=== PATIENT | female | born 1950 | race Caucasian/White ===

== ENCOUNTER 2025-02-19 19:37 | Day surgery (SDC) | payer BC, MEDICARE, SELFPAY ==
[2025-02-19] VITALS (12 sets, daily range): BP systolic 95–166; BP diastolic 50–100; BMI 30.1; BMI 27.8
[2025-02-19 10:28] LABS: Hematocrit 38.2 % (37.0-47.0); Hemoglobin 13.7 g/dL (12.0-16.0); Mean Corp Hgb Conc. 35.9 g/dL (33.0-37.0); Mean Corpuscular Volume 87.0 fL (81.0-99.0); Nucleated Red Blood Cells % 0 %; Platelet Count 295 10^3/uL (130-400); Red Cell Dist. Width 12.9 % (11.5-14.5)
[2025-02-19 11:00] LABS: ALT (SGPT) 24 U/L (0-35); AST (SGOT) 29 U/L (14-36); Albumin 4.6 g/dl (3.5-5.0); Alkaline Phosphatase 66 U/L (38-126); Blood Urea Nitrogen 20 mg/dl (7-17); Calcium 10.1 mg/dl (8.4-10.2); Carbon Dioxide 26 mmol/L (22-30); Chloride 99 mmol/L (98-107); Glucose 125 mg/dl (70-99); Lipase 135 U/L (23-300); Potassium 4.3 mmol/L (3.5-5.1); Sodium 133 mmol/L (135-145); Total Protein 7.3 g/dl (6.3-8.2); eGFR > 60.00
--- NOTE | 2025-02-19 12:24 | ED.GENMED ---
History of Present Illness
General
Chief Complaint: Abdominal Pain
Source: patient
Exam Limitations: none
Time Seen by Provider: 02/19/25 12:00
History of Present Illness
History of Present Illness:
74yoF with history of hypertension, hyperlipidemia, and hypothyroidism presenting for evaluation of abdominal pain. Patient has been feeling unwell for about a week. She started to experience sharp gas pains in the periumbilical and RLQ regions
yesterday. She was moving her bowels all night. This morning, she noticed a hard lump in the RLQ and decided to come to the ED. She had two episodes of vomiting today. She denies any fevers or difficulty urinating. No previous abdominal
surgeries.
Phy Exam
Physical Exam
Physical Exam:
Appears uncomfortable, non-toxic
General Physical Exam
General Presentation: mild distress
General Skin: warm and dry
General Habitus: normal
General Mental: alert
ENT Exam
ENT Exam: normocephalic
Pulmonary Exam
Pulmonary Exam: no respiratory distress
Gastrointestinal Exam
Gastrointestinal Exam: normal bowel sounds, soft, non distended, tender and other (Palpable hernia in RLQ that is unable to be reduced. No skin changes. +Tenderness to RLQ.)
Neurological Exam
Neurological Exam: alert
Molly Coma Scale
Eye Opening: Spontaneous
Verbal Response: Oriented
Motor Response: Obeys Commands
GCS Total Score: 15
Skin Exam
Skin Exam: normal color and warm/dry
Psychiatric Exam
Psychiatric Exam: normal mood/affect
Course
Orders/Labs/Results
Orders:
Orders
02/19/25 10:16
IV Insert/Care/Rem.- Treatment PRN
02/19/25 10:20
Complete Blood Count/With Diff Urgent
Comprehensive Metabolic Panel Urgent
Lipase Urgent
02/19/25 12:24
0.9% Sodium Chloride 1000 ml [Nss] 1,000 ml IV BOLUS
02/19/25 12:25
CT Abd/pelvis W Iv Cont Urgent
Comment:
Reason For Exam: RLQ pain, possible hernia, vomiting
02/19/25 14:50
HYDROmorphone [Dilaudid] 0.5 mg IV NOW STA
Ondansetron Injectable [Zofran] 4 mg IV NOW STA
Abnormal Lab Results
02/19/25
10:20
MCH 31.2 H pg
(27.0-31.0)
Absolute Monos (auto) 0.7 H 10^3/uL
(0.1-0.6)
Lymphocytes % 17.3 L %
(20.5-51.1)
Sodium 133 L mmol/L
(135-145)
BUN 20 H mg/dl
(7-17)
Glucose 125 H mg/dl
(70-99)
02/19/25 10:20
02/19/25 10:20
Vital Signs
Initial and Last Documented VS:
Initial Vital Signs
Temp Pulse Resp BP Pulse Ox
98.7 F 95 18 166/100 99
02/19/25 10:12 02/19/25 10:12 02/19/25 10:12 02/19/25 10:12 02/19/25 10:12
Last Documented Vital Signs
Temp Pulse Resp BP Pulse Ox
98.7 F 70 16 104/62 99
02/19/25 10:12 02/19/25 12:39 02/19/25 12:39 02/19/25 15:00 02/19/25 15:15
MDM/Problems Addressed
Differential Diagnosis Includes:
74yoF here with abd pain and vomiting. Noticed a hard lump in the RLQ this morning. She is hypertensive with otherwise normal vitals. She appears uncomfortable but is non-toxic. There is a palpable firm mass noted on exam that is unable to be
reduced. Differential diagnosis includes: hernia, bowel obstruction, constipation, malignancy
Initial ED plan: Labs obtained in triage which are overall unremarkable. Will proceed with CT abdomen. She declines analgesics.
*Pulse Oximetry
SaO2: 99
Oxygen Mode of Delivery: Room air
Patient hypoxic: no (99%)
*Critical Care Note
Total Time (30-74mins, 75-104mins- exclusive of procedures): Not Applicable
Update Note
Update Note:
CT shows a right groin hernia containing an obstructed loop of small bowel. Ice applied and patient placed in Trendelenburg position. Patient evaluated by Dr. Lane. Hernia unable to be reduced. Plan for surgery this afternoon for hernia
repair.
ED Attending Note
-
Portions of this chart may have been created with voice recognition software.� Occasional wrong word or��sound alike� substitutions may have occurred due to the inherent limitations of voice recognition software.
Discharge Plan
Departure
Patient Disposition: Admit
Date of Disposition: 02/19/25
Time of Disposition: 15:40
Presentation/result/management discussed w/ accepting MD/DO: Dr. Lane
Discharge Problem:
Inguinal hernia of right side with obstruction
Prescriptions:
No Action
lisinopril 20 mg tablet
20 mg PO DAILY
aspirin 81 mg Tablet,Delayed Release (Dr/Ec)
81 mg PO DAILY
simvastatin [Zocor] 40 mg Tablet
40 mg PO QPM
levothyroxine [Synthroid] 75 mcg Tablet
75 mcg PO DAILY
hydrochlorothiazide 25 mg Tablet
25 mg PO DAILY
Referrals:
Michael Gerard IV, MD [Family Provider, Family Practice]
Interventions
Interventions:
*Risk Screen - Suicide Last Done: 02/19/25 10:12
*General Assessment Last Done: 02/19/25 11:13
*Neglect/Abuse Screening Last Done: 02/19/25 10:12
*ED- Fall Risk Assessment Last Done: 02/19/25 11:13
*ED COVID-19 Vaccine History Last Done: 02/19/25 11:13
GA-Cajwme-Fwntcenepm Assessment Last Done: 02/19/25 11:17
Discharge Date and Time
Print Language: KISWAHILI
[2025-02-19] MEDS: NSS 1000 IV (12:32)
[2025-02-19] MEDS: DILAUDID 0.5 MG IV (14:54)
[2025-02-19] MEDS: ZOFRAN 4 MG IV ×2 (14:54→20:55)
--- NOTE | 2025-02-19 15:20 | HPS.HSE ---
Family Physician
-
Family Physician: Michael Gerard IV, MD
Chief Complaint
-
RIGHT groin pain
History of Present Illness
Patient is a 74 yo F with a PMH of HTN, HLD, and hypothyroidism who presents to the ED approximately 12 hours of RIGHT groin discomfort. Mr. Bunn states that she developed mild to moderate RIGHT groin discomfort yesterday after grocery shopping.
Her symptoms persisted throughout the day, however, she was able to pass flatus and stools up until yesterday evening. This Am her pain worsened and she developed nausea and vomiting prompting presentation to the ER. No fevers or chills. Current
nausea, but no vomiting. No recent flatus or bowel movement since yesterday. She denies any prior symptoms of RIGHT groin discomfort. She has been performing some heavy lifting carrying bags of mulch and doing yard work.
Medical History
Past Medical History
Past Medical History: Reports HTN, Hypercholesterolemia and Hypothyroidism
Past Surgical History: Reports Other (Cataract)
Social History
Tobacco: Non-smoker
Alcohol: Occasional
Drug: None
Personal:
Living: With Family
Family History
Family History: Not pertinent
Allergies / Home Medications
Allergies reflects when Allergies were last updated in [facility].
Home Medications with original date entered in [facility]
Allergy/Medication List:
Lidocaine
Review of Systems
-
A 12 point ROS was completed and negative except as noted: Yes
Physical Exam
Vital Signs
Vital Signs
Temp Pulse Resp BP Pulse Ox
98.7 F 70 16 126/72 100
02/19/25 10:12 02/19/25 12:39 02/19/25 12:39 02/19/25 14:46 02/19/25 14:47
Physical Exam
General: Well Developed, Well Nourished, No Apparent Distress and Pain
HEENT: NormoCephalic and Anicteric
Respiratory: Non Labored Respirations
Cardiac: Regular Rhythm
GI: Soft, Non Tender, Non Distended and Other (RIGHT groin bulge/hernia, non-reducible, firm, tender, no skin changes, no palpable LEFT inguinal hernia)
Musculoskeletal: No Edema
Neuro: Nonfocal/grossly intact
Laboratory Results
-
02/19/25 10:20
02/19/25 10:20
Laboratory Results
Total Bilirubin 1.0 mg/dl (0.2-1.3) 02/19/25 10:20
AST 29 U/L (14-36) 02/19/25 10:20
ALT 24 U/L (0-35) 02/19/25 10:20
Alkaline Phosphatase 66 U/L (38-126) 02/19/25 10:20
Lipase 135 U/L (23-300) 02/19/25 10:20
Data Reviewed
-
CT Scan: Image Personally Visualized and interpreted and Report Reviewed by me
Lab Data: Labs Reviewed by me
Impression/Plan
-
IMPRESSION:
Patient is a 74 yo F p/w incarcerated RIGHT inguinal/femoral hernia containing bowel with associated obstruction
The natural history and pathophysiology of groin hernias was discussed. Anatomy was reviewed. CT scan imaging was reviewed. Options for management were briefly reviewed. Given the incarcerated nature of her hernia with associated bowel recommend
operative intervention on a more emergent basis.
Plan for a laparoscopic possible open RIGHT inguinal/femoral hernia repair with possible mesh possible bowel resection. The procedure itself, as well as the risks, benefits, and alternatives was discussed. Specifically, we discussed the risks of
bleeding, infection, injury to surrounding structures (bowel, nerves), wound complications, and recurrence. Typical postprocedural recovery was discussed. Specifically, we discussed no heavy lifting or strenuous activities for 4 weeks
postoperatively. Postoperative hospitalization and recovery also to be determined based on need for bowel resection. All questions answered. Consent signed.
PLAN:
-- Laparoscopic possible open RIGHT inguinal/femoral hernia repair with possible mesh possible bowel resection
-- NPO, IVF
-- Abx: Zosyn
-- Admit post-op
--- NOTE | 2025-02-19 15:46 | W.SUR.PREOP ---
Pre-Operative Surgical Note
-
I have examined this patient prior to the performance of the scheduled procedure.
The patient's condition is unchanged from the time of the current History and
Physical and the patient is able to undergo the scheduled procedure.
[2025-02-19] MEDS: ZOSYN 50 IV (17:42)
[2025-02-19] MEDS: LR 1000 IV (17:43)
--- NOTE | 2025-02-19 20:28 | W.IMMPOSTOP ---
Surgical Immed Post Op Note
-
Primary Surgeon: Ariana
Assisting Surgeon: None
Pre-op Diagnosis: Incarcerated femoral hernia
Post-op Diagnosis: Incarcerated femoral hernia
Procedure Performed: Laparoscopic femoral hernia repair with mesh, diagnostic laparoscopy and reduction of femoral hernia
Anesthesia Type: General
Specimen / Cultures: None
Estimated Blood Loss: 3 cc
Complications: None
Operative Findings:
1. Femoral hernia containing knuckle of small bowel, reduced, viable, serous reactive fluid
2. Laparoscopic TEPP femoral hernia repair with Bard 3D Max large mid weight (no direct or indirect)
[2025-02-20] VITALS: BP 107/60
[2025-02-20 01:00] VITALS: BP 99/55
[2025-02-20] MEDS: TYLENOL PO (01:10)
[2025-02-20] MEDS: TYLENOL 650 MG PO ×4 (04:56→16:22)
[2025-02-20 06:24] LABS: Hematocrit 32.6 % (37.0-47.0); Hemoglobin 11.3 g/dL (12.0-16.0); Mean Corp Hgb Conc. 34.7 g/dL (33.0-37.0); Mean Corpuscular Volume 88.6 fL (81.0-99.0); Platelet Count 228 10^3/uL (130-400); Red Cell Dist. Width 12.9 % (11.5-14.5)
--- NOTE | 2025-02-20 06:43 | PTCARENOTE ---
Received pt from PACU around 2129, pt s/p hernia mesh repair. bedside as well. Patient oriented to room. see flowsheets for vital signs and assessment. Call roth within reach.
[2025-02-20 06:50] LABS: Blood Urea Nitrogen 12 mg/dl (7-17); Calcium 9.0 mg/dl (8.4-10.2); Carbon Dioxide 26 mmol/L (22-30); Chloride 100 mmol/L (98-107); Estimated Creatinine Clearance 66 ml/min; Glucose 146 mg/dl (70-99); Potassium 4.5 mmol/L (3.5-5.1); Sodium 132 mmol/L (135-145); eGFR > 60.00
[2025-02-20 07:25] VITALS: BP 112/68
[2025-02-20] MEDS: LR IV (08:08)
[2025-02-20] MEDS: LR 1000 IV (08:19)
--- NOTE | 2025-02-20 10:07 | CM ---
Reviewed the chart notes and spoke with the patient at the bedside. Patient is s/p laparoscopic femoral hernia repair with mesh. Diet advanced to clear liquid. The patient resides with her spouse in a two story home with two steps to enter. The
patient reports no DME/VN/SNF in the past. The patient confirmed her pharmacy of choice is [facility]. CM continues to be available to patient/family and is monitoring medical plan for needs at discharge.
Plan: Discharge to home when medically stable. No anticipated needs identified at this time.
[2025-02-20 11:05] VITALS: BP 147/77
--- NOTE | 2025-02-20 12:40 | W.PN.GS2 ---
Today's Communication / Plan
-
-- Clears ADAT to LRD
-- HLIV
-- Pain control: Tylenol, Toraol, Tramadol
-- Home meds
-- Dispo pending dietary tolerance
Assessment / Plan
-
Patient is a 74 yo F p/w incarcerated RIGHT femoral hernia, POD#1 s/p laparoscopic RIGHT femoral hernia repair with mesh, and diagnostic laparoscopy with reduction of incarcerated bowel
AVSS
Labs notable for normal WBC, slight drift in Hb, hyponatremia, normal renal function
Clinically improved. No major postoperative concerns. No clinical signs of bleeding. Plan for dietary advancement throughout the day. Dispo pending dietary tolerance today versus tomorrow.
-- Clears ADAT to LRD
-- HLIV
-- Pain control: Tylenol, Toraol, Tramadol
-- Home meds
-- DVT: Lovenox
-- Dispo pending dietary tolerance
Subjective Data
-
Date of Service: February 20, 2025
Subjective. No major complaints. Pain well-controlled. Denies any nausea or vomiting. Reports passing flatus. No bowel movement. No fevers. Voiding.
Objective Data
-
Intake and Output
02/19/25 02/20/25 02/21/25
06:59 06:59 06:59
Intake Total 800 / 800
Output Total 50 / 50
Balance 750 / 750
Intake:
IV fluids (Total) 800 / 800
Output:
Urine, Suggs 50 / 50
Other:
Number of approximated MODERATE 1
amounts of urine
Number of approximated LARGE 1
amounts of urine
Vital Signs
Temp Pulse Resp BP Pulse Ox
98.1 F 50 14 147/77 98
02/20/25 11:05 02/20/25 11:05 02/20/25 11:05 02/20/25 11:05 02/20/25 11:05
Lab Results
02/20/25 06:01
02/20/25 06:01
Calcium 9.0 mg/dl (8.4-10.2) 02/20/25 06:01
Total Bilirubin 1.0 mg/dl (0.2-1.3) 02/19/25 10:20
AST 29 U/L (14-36) 02/19/25 10:20
ALT 24 U/L (0-35) 02/19/25 10:20
Alkaline Phosphatase 66 U/L (38-126) 02/19/25 10:20
Total Protein 7.3 g/dl (6.3-8.2) 02/19/25 10:20
Albumin 4.6 g/dl (3.5-5.0) 02/19/25 10:20
Physical Exam
-
Gen: NAD
Abd: soft, NT/ND, non-peritoneal, incisions c/d/i - no erythema, ecchymosis or drainage, RIGHT groin flat, no palpable hernia or seroma/hematoma, mild ecchymosis or skin from prior reduction attempts
Patient has a suggs catheter: No
Patient has a central line: No
[2025-02-20] MEDS: ORETIC 25 MG PO (14:36)
[2025-02-20 15:25] VITALS: BP 116/53
--- NOTE | 2025-02-20 16:13 | W.DS.TRANS ---
DC Summary - [employer] Supervisor
-
Discharge Instructions:
Discharge Diagnosis/Procedures Laparoscopic RIGHT femoral hernia repair with
mesh
Diet Low Fiber,Regular
Additional Diets Follow a low fiber or low residue diet for the
next few days, okay to advance back to regular
as tolerated
Activity No strenuous activity
Additional Activity No heavy lifting (>20 lbs) or strenuous
activities for 4 weeks postoperatively
Driving Restrictions No driving if too sore or taking narcotics
Bathing Restrictions OK to Shower
Wound Care Keep incisions clean and dry. Glue will flake
off in 2 to 3 weeks. Sutures will dissolve.
Use ice to the groin to reduce any bruising or
swelling.
Instructions:
Stand-Alone Forms:
Changes to Home Medications: No
Discharge Medications:
DC Medications w/original date entered in [email or web address]
aspirin 81 mg tablet,delayed release 81 mg PO DAILY 02/19/25
hydrochlorothiazide 25 mg tablet 25 mg PO DAILY 02/19/25
levothyroxine 75 mcg tablet (Synthroid) 75 mcg PO DAILY 02/19/25
lisinopril 20 mg tablet 20 mg PO DAILY 02/19/25
simvastatin 40 mg tablet (Zocor) 40 mg PO QPM 02/19/25
acetaminophen 325 mg tablet 650 mg (2 x 325 mg) PO Q4HPRN PRN mild pain #1 tab 02/20/25
ibuprofen 200 mg tablet 400 - 600 mg (2 - 3 x 200 mg) PO Q6HPRN PRN moderate pain #1 tab 02/20/25
tramadol 50 mg tablet 50 mg PO Q6HPRN PRN severe pain/breakthrough pain #5 tabs 02/20/25
Home Medication Changes
Pending Results: No
== END 2025-02-20 16:49 | disposition home or self-care (01) ==
LOC: SDS 19:37
PROVIDERS: Emergency Medicine; ATTENDING PHYSICIAN Surgery; EMERGENCY PHYSICIAN Emergency Medicine; FAMILY PHYSICIAN Family Medicine
DX: K41.30 Unilateral femoral hernia, with obstruction, without gangrene, not specified as recurrent (principal)
CPT/HCPCS: 49553; 74177; 80048; 80053; 83690; 85025; 85027; 96361; 96365; 96375; 99285; C1781; Q9967